=== PATIENT | female | born 1935 | race Caucasian/White ===

== ENCOUNTER 2016-12-25 09:00 | Day surgery (SDC) | payer MEDICARE, OTHER ==
[~2016-12-25 09:00] MED LIST: ADVIL200 M1 PO; ALDACTONE25 M1 PO; ALDACTONE25 MG PO; ASPIR 8181 M1 PO; ASPIR 8181 MG PO; BREO ELLIPTA 11 EAC1 INH; CALCIUM500 M3 PO; CALCIUM500 MG PO; CHOLESTYRAMIN4 G/PKT; CLARITIN10 M6 PO; COQ10 PO; COREG25 M1 PO; COREG25 MG PO; CYMBALTA30 M1 PO; DIAZEPAM5 M PO; DITROPAN XL10 M3 PO; DULCOLAX5 MG PO; ENABLEX7.5 MG PO; FASLODEX250 MG/5 M; FEMARA2.5 M1 PO; FEMARA2.5 MG; FLONASE16 GM; FOLTX PO; FOLTX TABLET1 EAC1 PO; FOSAMAX70 MG; HYDRALAZINE HCL25 MG; HYDROCHLOROQUINE; IBRANCE125 MG PO; MAGNESIUM CITR100 M1 PO; MULTIVITAMIN1 CAP; MULTIVITAMIN1 TAB PO; MULTIVITAMINS1 EAC6 PO; NORCO 5/325 TAB1 TAB PO; NORTRIPTYLINE H25 M1 PO; NORVASC5 MG PO; OMEGA 3 1,0001 EAC1 PO; OMEGA 31 CAP PO; OXYCONTIN10 M2 PO; PLAQUENIL200 M1 PO; PLAQUENIL200 MG PO; PROLIA60 MG/1 M1 SC; REFRESH TEARS15 M1 OP; SULINDAC200 MG; TIZANIDINE HCL2 MG; VITAMIN D; VITAMIN D31000 UNI3 PO; VITAMIN D3400 UNI4 PO; VITAMIN D400 UNI1 PO; ZETIA10 M1 PO; ZETIA10 MG PO; ZOMETA4 MG/5 M1 IV; ZOMETA4 MG/5 ML IV; [UNRECOGNIZED DRUG - REMARK]
[2016-12-25 10:18] LABS: PROTHROMBIN TIME 11.5 SECONDS (9.0-13.6)
== END 2016-12-25 12:50 ==
LOC: CTSCAN 09:00 → SHSB 09:01
PROVIDERS: Radiology Diagnostic Radiology
PROC: 07DR3ZX Extraction of Iliac Bone Marrow, Percutaneous Approach, Diagnostic (ICD-10-PCS; principal; 2016-12-25)
DX: M89.9 Disorder of bone, unspecified (principal); E78.5 Hyperlipidemia, unspecified; E55.9 Vitamin D deficiency, unspecified; I25.10 Atherosclerotic heart disease of native coronary artery without angina pectoris; I11.0 Hypertensive heart disease with heart failure; I50.9 Heart failure, unspecified; K59.09 Other constipation; F41.8 Other specified anxiety disorders; M81.0 Age-related osteoporosis without current pathological fracture; Z85.3 Personal history of malignant neoplasm of breast; Z88.5 Allergy status to narcotic agent; Z88.8 Allergy status to other drugs, medicaments and biological substances; Z87.891 Personal history of nicotine dependence; Z98.890 Other specified postprocedural states
CPT/HCPCS: C1830; J2250; J3010; J7030